=== PATIENT | female | born 1960 | race Caucasian/White ===

== ENCOUNTER → 2020-08-09 13:14 | Outpatient (CLI) | payer OTHER, SELFPAY ==
[2020-08-09] MEDS: COVID-19 VACC #1, MRNA(MOD) 100 MCG/0.5 ML VIAL IM (13:26)
== END ==
PROVIDERS: Family Provider Orthopaedic Surgery; PCP Orthopaedic Surgery; Visit Provider Internal Medicine
DX: Z23 Encounter for immunization (principal)
CPT/HCPCS: 0011A; 91301

== ENCOUNTER → 2020-09-07 12:28 | Outpatient (CLI) | payer OTHER, SELFPAY ==
[2020-09-07] MEDS: COVID-19 VACC #2, MRNA(MOD) 100 MCG/0.5 ML VIAL IM (12:33)
== END ==
PROVIDERS: Family Provider Orthopaedic Surgery; PCP Orthopaedic Surgery; Visit Provider Internal Medicine
DX: Z23 Encounter for immunization (principal)
CPT/HCPCS: 0012A; 91301

== ENCOUNTER → 2024-06-19 14:41 | Outpatient (CLI) | payer MEDICARE, SELFPAY ==
--- NOTE | 2024-06-19 | PATH_ITS ---
[facility] Accession Number: [id number] No. of containers..01 Tissue . 01 Material submitted: . axillary tail of breast - RIGHT AXILLARY LYMPH NODE . 01 Diagnosis: A: LYMPH NODE, RIGHT AXILLARY, CORE BIOPSY: Classic Hodgkin lymphoma, see comment and microscopic description. - COMMENT: Concurrent flow cytometry case (specimen ID: [id number], 06/22/2024) from a right axillary lymph node sample demonstrated no monoclonal B-cell or aberrant T-cell populations in a limited analysis. - Note that subtyping classic Hodgkin lymphoma is reserved for an excisional biopsy sample. - The diagnostic findings were discussed with Dr. Chevy Reese at 2:55 PM on 06/25/2024. [facility] 06/25/2024 1511 Local . 01 Electronically signed: . Evon Dubrin MD, Pathologist NPI- [id number] . 01 Gross description: . Received in formalin with two identifiers and right AXLN, are four platt needle cores rangin in length from 0.4 to 1.1 cm and 0.1 cm in diameter. Submitted entirely in cassette A1. ([id number]) /JAMES 06/20/2024 2159 Local . 01 Microscopic: . - Histologic sections demonstrate core fragments of lymphoid tissue with involvement by large atypical lymphoid cells, [id number] nuclei, with eosinophilic cytoplasm, and prominent nucleoli, consistent with Hodgkin cells, Bucky-Teri (R/S) cells, and rare mummified cells in a polymorphous background of mixed reactive lymphocytes, eosinophils, macrophages, and plasma cells. - Immunohistochemical stains were indicated with adequate controls and show the large atypical lymphoid cells to be positive for CD30 (uniform membranous staining with Golgi accentuation), MUM-1, and SOL-1 (weak); while negative for CD15, CD20, PAX-5, OCT-2, CD45, and ANTWAN AMY. CD3 highlights background T-cells. - As part of ongoing quality systems technician, select slides were reviewed by Dr. Garrick Raya who agrees with the interpretation. Technical Note: The immunohistochemical stains reported were performed at [facility] ([address] [place], [place] [address]e [address], [facility] [address]). This test was developed, and the performance characteristics were validated by [facility]. It has not been cleared or approved by the Food and Drug Administration. . 01 Pathologist provided ICD-10: C85.10 . 01 CPT . 560353, P39119, W72126, W44033 Specimen Comment: A courtesy copy of this report has been sent to [facility], Specimen Comment: [phone] Performed at: [address], [place], [place] [id number] MD Tc Mendiola MD Phone: [phone]
--- NOTE | 2024-06-19 14:45 | DI.US.S_ITS ---
PROCEDURE: US BIOPSY LYMPH NODE INDICATIONS: bx of rt axillary LN for oncology consult TECHNIQUE: The indications, alternatives, benefits, risks, and complications of the procedure were explained to the patient. Written informed consent was obtained and placed in the chart. Real-time sonography was utilized to choose the site for percutaneous lymph node sampling. The skin was prepped and draped in the usual sterile fashion. 1% lidocaine was infiltrated down to the site of interest. A coaxial needle was then advanced into the site of interest under direct sonographic visualization. A biopsy apparatus was then utilized, and core biopsies were obtained. The needle was then withdrawn; a bandage was applied to the biopsy site. COMPARISON: None. FINDINGS: Biopsy site: Right axillary lymph node Needle: 18 gauge GlossyBox motion biopsy needle set. Number of passes: 4 Medications: 1% lidocaine for local anaesthesia. Complications: None. IMPRESSION: Successful ultrasound-guided right axillary lymph node biopsy, with pathology results pending. Approved by: Howie Lion M.D. on 06/19/2024 at 16:39
== END ==
PROVIDERS: Family Provider Orthopaedic Surgery; PCP Family Medicine; Visit Provider Radiology Diagnostic Radiology
DX: C81.94 Hodgkin lymphoma, unspecified, lymph nodes of axilla and upper limb (principal)
CPT/HCPCS: 38505; 76942